=== PATIENT | female | born 1945 | race Caucasian/White ===

== ENCOUNTER → 2021-06-30 | Outpatient (CLI) | payer MEDICARE ==
[~2021-06-30] MED LIST: AUGMENTIN 875-1 EACH PO; DIFLUCAN150 MG PO; HYDROCHLOROTHIA25 MG PO; LOTENSIN40 MG PO; NORCO 5-325 TA1 EACH PO; SYNTHROID25 MCG PO; ZOFRAN4 MG PO
== END ==
LOC: KOH-I 10:07
DX: M25.561 Pain in right knee (principal)
CPT/HCPCS: 73562